=== PATIENT | female | born 1995 | race Caucasian/White ===

== ENCOUNTER 2018-03-26 20:20 | Inpatient (IN) ==
[2018-03-26] MEDS ORDERED: Aluminum/Magnesium/Simethacone Susp 30 ML UDC PO PRN (23:20)
[2018-03-26] MEDS ORDERED: Acetaminophen 325 MG Tablet PO PRN (23:20)
[2018-03-26 23:56] VITALS: BP 137/77; PULSE 75; RESP 18; TEMP 98.5; O2SAT 98
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
== END 2018-03-27 15:35 | disposition home or self-care (01) | DRG 882 ==
LOC: H270 23:00
PROVIDERS: ADMIT Psychiatry & Neurology Psychiatry; ATTEND Psychiatry & Neurology Psychiatry